=== PATIENT | female | born 1995 | race Native Hawaiian/Other Pacific Islander ===

== ENCOUNTER 2024-06-13 07:56 | Inpatient (IN) | payer OTHER ==
--- NOTE | 2024-06-13 08:06 | ED ---
General Adult HPI - General Stated complaint: Mental Health Eval Time Seen by Provider: 06/13/24 08:02 Source: patient, police, EMS, RN notes reviewed Mode of arrival: EMS Limitations: no limitations - History of Present Illness Initial comments: 29-year-old female presents emergency department via EMS for complaint of depression, she was ideation. Patient was brought in after her boyfriend called as patient made suicidal ideations. Patient states she is cut her finger with a razor blade she is unsure when her last tetanus was. Patient states she has been hospitalized in the past for similar reasons. Denies any current medications he does admit to alcohol use last night, marijuana use. - Related Data Allergies Allergy/AdvReac Type Severity Reaction Status Date / Time No Known Allergies Allergy Verified 06/13/24 08:12 Review of Systems ROS Statement: Those systems with pertinent positive or pertinent negative responses have been documented in the HPI. ROS Other: All systems not noted in ROS Statement are negative. General Exam Limitations: no limitations General appearance: alert, in no apparent distress Head exam: Present: atraumatic, normocephalic, normal inspection Eye exam: Present: normal appearance, PERRL, EOMI. Absent: scleral icterus, conjunctival injection, periorbital swelling ENT exam: Present: normal exam, mucous membranes moist Neck exam: Present: normal inspection, full ROM. Absent: tenderness, meningismus, lymphadenopathy Respiratory exam: Present: normal lung sounds bilaterally. Absent: respiratory distress, wheezes, rales, rhonchi, stridor Cardiovascular Exam: Present: regular rate, normal rhythm, normal heart sounds. Absent: systolic murmur, diastolic murmur, rubs, gallop, clicks Neurological exam: Present: alert, oriented X3, CN II-XII intact Skin exam: Present: warm, dry, intact, normal color. Absent: rash Course Vital Signs 06/13/24 07:59 Temperature 98.8 F Pulse Rate 73 Respiratory 18 Rate Blood Pressure 121/75 O2 Sat by Pulse 98 Oximetry Medical Decision Making - Medical Decision Making Was pt. sent in by a medical professional or institution (, PA, P[facility], urgent care, hospital, or fpc...) When possible be specific @ -No Did you speak to anyone other than the patient for history (EMS, parent, family, police, friend...)? What history was obtained from this source @ -No Did you review nursing and triage notes (agree or disagree)? Why? @ -I reviewed and agree with nursing and triage notes Were old charts reviewed (outside hosp., previous admission, EMS record, old EKG, old radiological studies, urgent care reports/EKG's, fpc records)? Report findings @ -No old charts were reviewed Differential Diagnosis (chest pain, altered mental status, abdominal pain women, abdominal pain men, vaginal bleeding, weakness, fever, dyspnea, syncope, headache, dizziness, GI bleed, back pain, seizure, CVA, palpatations, mental health, musculoskeletal)? @ -Differential Mental Health Depression, anxiety, bipolar, psychosis, schizophrenia, borderline personality, situational depression, adjustment disorder, behavioral disorder, brain tumor, malingering, substance abuse, encephalopathy, medication reaction, dementia, hypothyroidism, degenerative neurologic disorder, lupus.... This is not meant to be all-inclusive list EKG interpreted by me (3pts min.). @ -None X-rays interpreted by me (1pt min.). @ -None done CT interpreted by me (1pt min.). @ -None done U/S interpreted by me (1pt. min.). @ -None done What testing was considered but not performed or refused? (CT, X-rays, U/S, labs)? Why? @ -None What meds were considered but not given or refused? Why? @ -None Did you discuss the management of the patient with other professionals (professionals i.e. , PA, P[facility], lab, RT, psych nurse, social media analyst, materials management supervisor, teacher, space operations officer, correctional case records supervisor)? Give summary @ -[EPS evaluated the patient recommended inpatient treatment Was smoking cessation discussed for >3mins.? @ -No Was critical care preformed (if so, how long)? @ -No Were there social determinants of health that impacted care today? How? (Homelessness, low income, unemployed, alcoholism, drug addiction, transportation, low edu. Level, literacy, decrease access to med. care, half-way, rehab)? @ -No Was there de-escalation of care discussed even if they declined (Discuss DNR or withdrawal of care, Hospice)? DNR status @ -No What co-morbidities impacted this encounter? (DM, HTN, Smoking, COPD, CAD, Cancer, CVA, ARF, Chemo, Hep., AIDS, mental health diagnosis, sleep apnea, morbid obesity)? @ -None Was patient admitted / discharged? Hospital course, mention meds given and route, prescriptions, significant lab abnormalities, going to OR and other pertinent info. @ -Admitted to [facility] Undiagnosed new problem with uncertain prognosis? @ -No Drug Therapy requiring intensive monitoring for toxicity (Heparin, Nitro, Insuli n, Cardizem)? @ -No Were any procedures done? @ -No Diagnosis/symptom? @ -Depression, suicidal ideation Acute, or Chronic, or Acute on Chronic? @ -Acute Uncomplicated (without systemic symptoms) or Complicated (systemic symptoms)? @ -Uncomplicated Side effects of treatment? @ -No Exacerbation, Progression, or Severe Exacerbation? @ -No Poses a threat to life or bodily function? How? (Chest pain, [place], [place], pneumonia, PE, COPD, DKA, ARF, appy, cholecystitis, CVA, Diverticulitis, Homicidal, Suicidal, threat to staff... and all critical care pts) @ -Yes suicidal - Lab Data Lab Results 06/13/24 Range/Units 08:24 Urine Opiates Screen Not Detected (NotDetected) Ur Oxycodone Screen Not Detected (NotDetected) Urine Methadone Screen Not Detected (NotDetected) Ur Barbiturates Screen Not Detected (NotDetected) U Tricyclic Antidepress Not Detected (NotDetected) Ur Phencyclidine Scrn Not Detected (NotDetected) Ur Amphetamines Screen Not Detected (NotDetected) U Methamphetamines Scrn Not Detected (NotDetected) U Benzodiazepines Scrn Not Detected (NotDetected) Urine Cocaine Screen Not Detected (NotDetected) U Marijuana (THC) Screen Detected H (NotDetected) Disposition Clinical Impression: Depression, Suicidal ideation Disposition: TRANSFER TO PSYCH HOSP/UNIT Referrals: None,Stated [Primary Care Provider] - 1-2 days Time of Disposition: 10:38
[2024-06-13] MEDS: DIPH,PERTUS(ACELL)TETVAC-LF 0.5 ML VIAL IM ONE (08:41)
[2024-06-13 08:54] LABS: Amphetamine Screen,Urine Not Detected (NotDetected); Barbiturate Screen,Urine Not Detected (NotDetected); Benzodiazepines Screen,Urine Not Detected (NotDetected); Cocaine Screen,Urine Not Detected (NotDetected); Methadone Screen, Urine Not Detected (NotDetected); Opiate Screen,Urine Not Detected (NotDetected); Oxycodone Screen, Urine Not Detected (NotDetected); Phencyclidine Screen,Urine Not Detected (NotDetected); Tricyclic Antidepressant,Urine Not Detected (NotDetected); Urn Cannabinoid Scrn Detected (NotDetected)
[2024-06-13] MEDS ORDERED: traZODone HCL 50 MG TAB PO PRN (16:00)
[2024-06-13] MEDS ORDERED: ACETAMINOPHEN TAB 325 MG TAB PO PRN (16:00)
[2024-06-13] MEDS ORDERED: MAGNESIUM HYDROXIDE 2,400 MG/30 ML CUP PO PRN (16:00)
[2024-06-13] MEDS ORDERED: LORazepam 1 MG TAB PO PRN (16:00)
[2024-06-13] MEDS ORDERED: LORazepam 2 MG/ML INJ IM PRN (16:00)
[2024-06-13] MEDS ORDERED: IBUPROFEN 600 MG TAB PO PRN (16:00)
[2024-06-13] MEDS ORDERED: MAG HYDROX/AL HYDROX/SIMETH 355 ML BOTTLE PO PRN (16:00)
[2024-06-13 17:45] LABS: Appearance,Urine Clear (Clear); Bilirubin,Urine Negative (Negative); Blood,Urine Negative (Negative); Color,Urine Colorless; Glucose,Urine (UA) Negative (Negative); Ketones,Urine Negative (Negative); Leukocyte Esterase,Urine Negative (Negative); Nitrite,Urine Negative (Negative); Protein,Urine Negative (Negative); Urobilinogen,Urine <2.0 mg/dL (<2.0)
--- NOTE | 2024-06-13 20:11 | P.MDCNMH ---
<Charanjit Ferguson - Last Filed: 06/13/24 20:11> History of Present Illness H&P Date: 06/13/24 Chief Complaint: Medical evaluation Patient is a 29-year-old female with no significant history was brought to the ER by EMS for concerns regarding depression and suicidal ideation. Patient is seen today for medical evaluation. Patient reports no concerns. Patient denies headaches, dizziness, acute vision changes, fever, chills, shortness of breath, chest pain, abdominal pain, diarrhea, constipation, urinary complaints, numbness or weakness or tingling in upper and lower extremities. Patient denies any tremors. Patient states that she used to smoke half a pack per day for 3 years from [id number]. She resumed smoking 3 cigarettes/day since 1 month. She drinks 1 bottle of wine every 2 weeks. She uses marijuana 10 mg to 50 mg/day since 1 month; last use last night. Denies use of any other illicit drugs. UA is unremarkable Urine toxicology screening is positive for marijuana. Vitals: Tmax 98.8 F, heart rate 73, respiration rate 18, blood pressure 121/76, O2 saturation 98% on room air. Review of systems: Pertinent positives and negatives as discussed in HPI, a complete review of systems was performed and all other systems are negative. Social history: Tobacco: As in HPI Alcohol: As in HPI Recreational drugs: As in HPI Travel: None Occupation: None Family History: Noncontributory Physical examination: Vital signs reviewed General: non toxic, no distress, appears at stated age, obese Dermatology: 5 mm circular abrasion on the right index finger with no deep cuts with no abscess; the wound was bandaged Cardiovascular: S1S2 reg, no murmur, positive dorsalis pedis pulse bilateral, no edema Lungs: CTA bilateral, no rhonchi, no rales, no accessory muscle use Abdominal: soft, nontender to palpation, no guarding Ext: muscle strength 5 out of 5 in all 4 extremities grossly, no gross muscle atrophy, no contractures, Assessment/Plan: 29-year-old female with no significant history was brought to the ER by EMS for concerns regarding depression and suicidal ideation. Patient is seen today for medical evaluation. Patient reports no concerns. #Abrasion wound The right index finger is bandaged Continue with acetaminophen 650 mg p.o. every 4 hours as needed and ibuprofen 600 mg p.o. every 6 hours as needed for pain #Depression and suicidal ideation Management as per psychiatry Past Medical History Additional Past Medical History / Comment(s): gestational diabetes History of Any Multi-Drug Resistant Organisms: None Reported Past Anesthesia/Blood Transfusion Reactions: No Reported Reaction Past Psychological History: Anxiety, Bipolar, Depression Smoking Status: Current every day smoker Past Alcohol Use History: Occasional Additional Past Alcohol Use History / Comment(s): 5 drinks approx every 2 weeks Past Drug Use History: Marijuana Medications and Allergies Home Medications Medication Instructions Recorded Confirmed Type No Known Home Medications 06/13/24 06/13/24 History Allergies Allergy/AdvReac Type Severity Reaction Status Date / Time No Known Allergies Allergy Verified 06/13/24 17:13 Physical Exam Vitals: Vital Signs Temp Pulse Pulse Resp BP BP Pulse Ox 06/13/24 16:59 98.7 F 75 18 132/82 95 06/13/24 16:08 97.9 F 77 18 121/76 97 06/13/24 07:59 98.8 F 73 18 121/75 98 Intake and Output 06/13/24 06/13/24 06/13/24 06:59 14:59 22:59 Other: Weight 88.451 kg 84.368 kg Cranial Nerve Examination - Cranial Nerves Cranial Nerve II- Optic: Intact Cranial Nerve III- Oculomotor: Intact Cranial Nerve IV- Trochlear: Intact Cranial Nerve V- Trigeminal: Intact Cranial Nerve - Abducens: Intact Cranial Nerve VII- Facial: Intact Cranial Nerve VIII- Auditory: Intact Cranial Nerve IX- Glossopharyngeal: Intact Cranial Nerve X- Vagus: Intact Cranial Nerve XI- Accessory: Intact Cranial Nerve XII- Hypoglossal: Intact Results Labs: Abnormal Lab Results - Last 24 Hours (Table) 06/13/24 Range/Units 08:24 U Marijuana (THC) Screen Detected H (NotDetected) <Mervin Burden - Last Filed: 06/14/24 04:15> Physical Exam Vitals: Vital Signs Temp Pulse Pulse Resp BP BP Pulse Ox 06/13/24 16:59 98.7 F 75 18 132/82 95 06/13/24 16:08 97.9 F 77 18 121/76 97 06/13/24 07:59 98.8 F 73 18 121/75 98 Intake and Output 06/13/24 06/13/24 06/14/24 14:59 22:59 06:59 Other: Weight 88.451 kg 84.368 kg Cranial Nerve Examination - Cranial Nerves Cranial Nerve II- Optic: Intact Cranial Nerve III- Oculomotor: Intact Cranial Nerve IV- Trochlear: Intact Cranial Nerve V- Trigeminal: Intact Cranial Nerve - Abducens: Intact Cranial Nerve VII- Facial: Intact Cranial Nerve VIII- Auditory: Intact Cranial Nerve IX- Glossopharyngeal: Intact Cranial Nerve X- Vagus: Intact Cranial Nerve XI- Accessory: Intact Cranial Nerve XII- Hypoglossal: Intact Results Labs: Abnormal Lab Results - Last 24 Hours (Table) 06/13/24 Range/Units 08:24 U Marijuana (THC) Screen Detected H (NotDetected) Assessment and Plan Plan: I have seen and evaluated the patient today. I Discussed the case with the resident and agree with the resident's findings I edited the assessment and plan as necessary as documented in the resident's note.
[2024-06-14] MEDS: NICOTINE 14MG/24HR PATCH TRANSDERM SCH (09:00)
[2024-06-14 12:54] LABS: Basophils # (A) 0.1 k/uL (0-0.2); Basophils % (A) 1 %; Eosinophils # (A) 0.1 k/uL (0-0.7); Eosinophils % (A) 1 %; HCT 44.1 % (34.0-46.0); HGB 14.7 gm/dL (11.4-16.0); Lymphocytes # (A) 1.5 k/uL (1.0-4.8); Lymphocytes % (A) 22 %; MCH 32.3 pg (25.0-35.0); MCHC 33.4 g/dL (31.0-37.0); MCV 96.6 fL (80.0-100.0); Mean Platelet Volume 9.1; Monocytes # (A) 0.5 k/uL (0-1.0); Monocytes % (A) 8 %; Neutrophils # (A) 4.6 k/uL (1.3-7.7); Neutrophils % (A) 67 %; Platelet Count 266 k/uL (150-450); RBC 4.57 m/uL (3.80-5.40); RDW 13.1 % (11.5-15.5); WBC 6.9 k/uL (3.8-10.6)
[2024-06-14 13:12] LABS: ALT 33 U/L (4-34); AST 27 U/L (14-36); African American GFR (CKD) >90 (>60 ml/min/1.73 sqM); Albumin 4.7 g/dL (3.5-5.0); Alkaline Phosphatase 64 U/L (38-126); Anion Gap 11 mmol/L; Blood Urea Nitrogen 11 mg/dL (7-17); Calcium 9.4 mg/dL (8.4-10.2); Carbon Dioxide 22 mmol/L (22-30); Chloride 107 mmol/L (98-107); Glucose 81 mg/dL (74-99); Non-African American GFR(CKD) >90 (>60 ml/min/1.73 sqM); Potassium 4.2 mmol/L (3.5-5.1); Sodium 140 mmol/L (137-145); Total Bilirubin 0.8 mg/dL (0.2-1.3); Total Protein 7.5 g/dL (6.3-8.2)
[2024-06-14 18:48] LABS: Chol/HDL Ratio 4.82 Ratio; LDL Cholesterol,Calculated 109.5 mg/dL (0.0-131.0)
[2024-06-15] MEDS: NICOTINE GUM (POLACRILEX) 2 MG GUM BUCCAL PRN (08:39)
[2024-06-15] MEDS: buPROPion SR 100 MG TABLET.ER PO SCH (08:39)
--- NOTE | 2024-06-15 17:25 | P.HP ---
Psychiatric H&P - . H&P Date: 06/14/24 History & Physical: Allergies Allergy/AdvReac Type Severity Reaction Status Date / Time No Known Allergies Allergy Verified 06/13/24 17:13 Vital Signs Temp 97.5 F L 06/15/24 06:38 Pulse 62 06/15/24 06:38 Resp 16 06/15/24 06:38 BP 109/69 06/15/24 06:38 Pulse Ox 100 06/15/24 06:38 FiO2 Laboratory Last Values WBC 6.9 k/uL (3.8-10.6) 06/14/24 12:11 RBC 4.57 m/uL (3.80-5.40) 06/14/24 12:11 Hgb 14.7 gm/dL (11.4-16.0) 06/14/24 12:11 Hct 44.1 % (34.0-46.0) 06/14/24 12:11 MCV 96.6 fL (80.0-100.0) 06/14/24 12:11 MCH 32.3 pg (25.0-35.0) 06/14/24 12:11 MCHC 33.4 g/dL (31.0-37.0) 06/14/24 12:11 RDW 13.1 % (11.5-15.5) 06/14/24 12:11 Plt Count 266 k/uL (150-450) 06/14/24 12:11 MPV 9.1 06/14/24 12:11 Neutrophils % 67 % 06/14/24 12:11 Lymphocytes % 22 % 06/14/24 12:11 Monocytes % 8 % 06/14/24 12:11 Eosinophils % 1 % 06/14/24 12:11 Basophils % 1 % 06/14/24 12:11 Neutrophils # 4.6 k/uL (1.3-7.7) 06/14/24 12:11 Lymphocytes # 1.5 k/uL (1.0-4.8) 06/14/24 12:11 Monocytes # 0.5 k/uL (0-1.0) 06/14/24 12:11 Eosinophils # 0.1 k/uL (0-0.7) 06/14/24 12:11 Basophils # 0.1 k/uL (0-0.2) 06/14/24 12:11 Sodium 140 mmol/L (137-145) 06/14/24 12:11 Potassium 4.2 mmol/L (3.5-5.1) 06/14/24 12:11 Chloride 107 mmol/L (98-107) 06/14/24 12:11 Carbon Dioxide 22 mmol/L (22-30) 06/14/24 12:11 Anion Gap 11 mmol/L 06/14/24 12:11 BUN 11 mg/dL (7-17) 06/14/24 12:11 Creatinine 0.58 mg/dL (0.52-1.04) 06/14/24 12:11 Est GFR (CKD-EPI)AfAm >90 (>60 ml/min/1.73 sqM) 06/14/24 12:11 Est GFR (CKD-EPI)NonAf >90 (>60 ml/min/1.73 sqM) 06/14/24 12:11 Glucose 81 mg/dL (74-99) 06/14/24 12:[address] Glu mg/dL 117 mg/dL 06/14/24 12:11 Hemoglobin A1c 5.7 % (<=6.0) 06/14/24 12:11 Calcium 9.4 mg/dL (8.4-10.2) 06/14/24 12:11 Total Bilirubin 0.8 mg/dL (0.2-1.3) 06/14/24 12:11 AST 27 U/L (14-36) 06/14/24 12:11 ALT 33 U/L (4-34) 06/14/24 12:11 Alkaline Phosphatase 64 U/L (38-126) 06/14/24 12:11 Total Protein 7.5 g/dL (6.3-8.2) 06/14/24 12:11 Albumin 4.7 g/dL (3.5-5.0) 06/14/24 12:11 Triglycerides 126.00 mg/dL (0.00-149.00) 06/14/24 12:11 Cholesterol 170.00 mg/dL (0.00-200.00) 06/14/24 12:11 LDL Cholesterol, Calc 109.5 mg/dL (0.0-131.0) 06/14/24 12:11 VLDL Cholesterol, Calc 25.20 mg/dL (5.00-40.00) 06/14/24 12:11 HDL Cholesterol 35.30 mg/dL (40.00-60.00) L 06/14/24 12:11 Cholesterol/HDL Ratio 4.82 Ratio 06/14/24 12:11 TSH 2.650 mIU/L (0.465-4.680) 06/14/24 12:11 Urine Color Colorless 06/13/24 08:24 Urine Appearance Clear (Clear) 06/13/24 08:24 Urine pH 6.0 (5.0-8.0) 06/13/24 08:24 Ur Specific [place] 1.010 (1.001-1.035) 06/13/24 08:24 Urine Protein Negative (Negative) 06/13/24 08:24 Urine Glucose (UA) Negative (Negative) 06/13/24 08:24 Urine Ketones Negative (Negative) 06/13/24 08:24 Urine Blood Negative (Negative) 06/13/24 08:24 Urine Nitrite Negative (Negative) 06/13/24 08:24 Urine Bilirubin Negative (Negative) 06/13/24 08:24 Urine Urobilinogen <2.0 mg/dL (<2.0) 06/13/24 08:24 Ur Leukocyte Esterase Negative (Negative) 06/13/24 08:24 Urine HCG, Qual Not Detected (Not Detectd) 06/13/24 08:24 Urine Opiates Screen Not Detected (NotDetected) 06/13/24 08:24 Ur Oxycodone Screen Not Detected (NotDetected) 06/13/24 08:24 Urine Methadone Screen Not Detected (NotDetected) 06/13/24 08:24 Ur Barbiturates Screen Not Detected (NotDetected) 06/13/24 08:24 U Tricyclic Antidepress Not Detected (NotDetected) 06/13/24 08:24 Ur Phencyclidine Scrn Not Detected (NotDetected) 06/13/24 08:24 Ur Amphetamines Screen Not Detected (NotDetected) 06/13/24 08:24 U Methamphetamines Scrn Not Detected (NotDetected) 06/13/24 08:24 U Benzodiazepines Scrn Not Detected (NotDetected) 06/13/24 08:24 Urine Cocaine Screen Not Detected (NotDetected) 06/13/24 08:24 U Marijuana (THC) Screen Detected (NotDetected) H 06/13/24 08:24 SARS-CoV-2 (PCR) Not Detected (Not Detectd) 06/13/24 11:10 06/15/24 17:24 Psychiatric Evaluation Identifying Data: Ms. Griffith is 29 years old, female, [place], [place] in a house with her boyfriend. Chief Complaint: I was trying to hurt myself. History of Psychiatric Illness- The patient noted that she was trying to hurt herself in an intoxicated state because of feeling of insecurity. Her boyfriend was trying to prevent her. He called the police and she was brought to the ER. The patient moved to her boyfriend in February, after from her . The patient noted that she has been depressed on and off for last 12 months due to her separation. She did not get any treatment for depression in last 12 months. She reported s ymptoms of appetite fluctuation, sleep irregularity, loss of interest, social isolation, worthlessness, hopelessness, and suicidal thoughts by cutting herself. The patient noted that she was trying to cut herself before coming to the hospital. The patient was first diagnosed with depression and generalized anxiety disorder, at age 23, she was diagnosed with PTSD and BPD. The patient noted that she was treated as an out-pt off and on since age 21 till the age 24. She has had 4 psychiatric admissions between the ages [age]. Her last psychiatric admission was in 2021. She was admitted to the hospital for depression and suicidal threats. Her last visit to out patient clinic was at age 24. Past Psychiatric History: As stated above. Past Medication History: Wellbutrin. She does not know the names of the other medications prescribed. Leading questions: The patient admitted to Depression and Anxiety. Denied SI or HI. Denied symptoms consistent with psychosis Drugs and alcohol history: She use alcohol occasionally. She uses Marijuana regularly. She denied use of any other drugs. Tobacco use: 3 cigarettes a day. Past Medical history: None. Family History of Psychiatric Disorder: Social History and Family History: She was born and raised in [place], [place]. She grew-up with 4 siblings. She dropped out in 12 grade. Longest job for 1 year at [employer]. She was once for 7 years. She has one child 3 years old. OTC: None. Allergies: none as per patient. Objective: MSE: Alert and attentive. Orientation times three Dressed and Groomed: Appropriately. Pleasant and cooperative. Psychomotor Activity: Normal. Speech: Normal in tone, quality, and quantity. Mood: Depressed and anxious. Affect: Consistent with mood. SI or HI: None. Perceptual disturbance: None. Thought Content: No paranoia or other delusional thinking noted. Thought Process: Normal. Cognition: Intact Judgment and Insight: Fair. AIMS: Normal Labs: Available labs reviewed. Diagnosis: major depressive disorder severe, recurrent. Plan and Recommendations: Continue current Medications. Wellbutrin SR 100 mg po daily. Monitor MS and side effects of medications and adjust medications accordingly. Provide supportive psychotherapy and psychoeducation. The patient provided psychoeducation. The patient provided with substance abuse counselling and advised to attend AA/NA Smoke cessation therapy. The patient to attend [facility]. Medication Consent with explanation of risk/benefits and side effects: Explained and obtained.
--- NOTE | 2024-06-15 17:33 | P.PN ---
Progress Note - Text Progress Note Date: 06/15/24 Follow-up Mediation Review Chief Complaint: I feeling better. Subjective: The patient noted that she feels better with Wellbutrin. Her mood has improved. She did complain of being tired after taking Wellbutrin No other side effects reported. Discussed with patient regarding the dose at 100 mg. and increased after she becomes tolerant to this side effect. No other side effects reported. The patient has been attending the groups. The participation is good. The interaction with staff and peers is good. The patient is compliant with treatment recommendations. Leading questions: The patient admitted to Depression and Anxiety. Denied SI or HI. Denied symptoms consistent with psychosis Sleep and Appetite: Fair. Change in family/ living/job/financial/daily routine: No change. Change in medical condition: No change. Change in medications: No change. Side effects from Medications: None. Allergies: No change. Objective- MSE: Alert and attentive. Orientation times three. Dressed and Groomed: Appropriately. Pleasant and cooperative. Psychomotor Activity: Normal. Speech: Normal in tone, quality, and quantity. Mood: I am slightly better. Affect: Consistent with mood. SI or HI: None. Perceptual disturbance: None. Thought Content: No paranoia or other delusional thinking noted. Thought Process: Normal. Cognition: Intact Judgment and Insight: Fair. AIMS: Normal. Labs: No new labs. Diagnosis: No change. Plan and Recommendations: Continue current Medications. Monitor MS and side effects of medications and adjust medications accordingly. Provide supportive psychotherapy. The patient provided psychoeducation and advised The patient provided Substance abuse counseling. Smoke cessation therapy. The patient to attend nguyen activities. CBC with Diff, CMP, TSH, Lipid Profile, HbA1c. Medication Consent with explanation of risk/benefits and side effects: Explained and obtained.
[2024-06-16 07:11] VITALS: TEMP 97.7
--- NOTE | 2024-06-16 13:54 | P.PN ---
Progress Note - Text Progress Note Date: 06/16/24 Follow-up Mediation Review Chief Complaint: I am improving. Subjective: The patient noted that she continues to feel better. Her tiredness has improved. She reported no other side effects. She did not want to increase medications any further. She wants medication to be titrated as an out-pt. No other side effects reported. She has been compliant with medications. The patient has been attending the groups. The participation is good. The interaction with staff and peers is good. The patient is compliant with treatment recommendations. Leading questions: The patient admitted to Depression and Anxiety. Denied SI or HI. Denied symptoms consistent with psychosis Sleep and Appetite: Fair. Change in family/ living/job/financial/daily routine: No change. Change in medical condition: No change. Change in medications: No change. Side effects from Medications: None. Allergies: No change. Objective- MSE: Alert and attentive. Orientation times three. Dressed and Groomed: Appropriately. Pleasant and cooperative. Psychomotor Activity: Normal. Speech: Normal in tone, quality, and quantity. Mood: Mild depression and anxiety. Affect: Consistent with mood. SI or HI: None. Perceptual disturbance: None. Thought Content: No paranoia or other delusional thinking noted. Thought Process: Normal. Cognition: Intact Judgment and Insight: Fair. AIMS: Normal. Labs: No new labs. Diagnosis: No change. Plan and Recommendations: Continue current Medications. Monitor MS and side effects of medications and adjust medications accordingly. Provide supportive psychotherapy. The patient provided psychoeducation and advised The patient provided Substance abuse counseling. Smoke cessation therapy. The patient to attend nguyen activities. Medication Consent with explanation of risk/benefits and side effects: Explained and obtained.
[2024-06-17 06:16] VITALS: BP 116/73; PULSE 60; RESP 19
--- NOTE | 2024-06-17 15:44 | P.DS ---
Providers Date of admission: 06/13/24 15:10 Expected date of discharge: 06/17/24 Attending physician: Soy Tipton MD Consults: 06/13/24 16:00 Consult Physician Routine Consulting Provider: Endy Sharif Consult Reason/Comments: H&P and medical Do you want consulting provider notified?: Yes Primary care physician: Stated None - Discharge Diagnosis(es) (1) Major depressive disorder, recurrent severe without psychotic features Status: Acute Priority: High Hospital Course: Discharge Summary HPI: Identifying Data: Ms. Griffith is 29 years old, female, [place], [place] in a house with her boyfriend. Chief Complaint: I was trying to hurt myself. History of Psychiatric Illness- The patient noted that she was trying to hurt herself in an intoxicated state because of feeling of insecurity. Her boyfriend was trying to prevent her. He called the police and she was brought to the ER. The patient moved to her boyfriend in February, after from her . The patient noted that she has been depressed on and off for last 12 months due to her separation. She did not get any treatment for depression in last 12 months. She reported symptoms of appetite fluctuation, sleep irregularity, loss of interest, social isolation, worthlessness, hopelessness, and suicidal thoughts by cutting herself. The patient noted that she was trying to cut herself before coming to the hospital. The patient was first diagnosed with depression and generalized anxiety disorder, at age 23, she was diagnosed with PTSD and BPD. The patient noted that she was treated as an out-pt off and on since age 21 till the age 24. She has had 4 psychiatric admissions between the ages [age]. Her last psychiatric admission was in 2021. She was admitted to the hospital for depression and suicidal threats. Her last visit to out-patient clinic was at age 24. Past Psychiatric History: As stated above. Past Medication History: Wellbutrin. She does not know the names of the other medications prescribed. Hospital Course: After admission, the patient was involved in pharmacotherapy, nguyen milieu, and individual psychodynamic psychotherapy. The patient was started Wellbutrin. The dose was titrated to obtain the desire effects. The patient tolerated medicat ions well without any side effects. The patient was also involved in nguyen activities. The patient attended the groups and participated well. The patient interacted with peers and staff well. The patient slowly started showing improvement. The hospital course was uneventful. The patient symptoms of depression, suicidal and homicidal ideations abated. The psychosis improved. The patient was stable to be discharged to out-patient care. The patient did not have any guns or weapons in possession at home. MSE: Alert and attentive. Orientation times three Dressed and Groomed: Appropriately. Pleasant and cooperative. Psychomotor Activity: Normal. Speech: Normal in tone, quality, and quantity. Mood: Depressed and anxious. Affect: Consistent with mood. SI or HI: None. Perceptual disturbance: None. Thought Content: No paranoia or other delusional thinking noted. Thought Process: Normal. Cognition: Intact Judgment and Insight: Fair. AIMS: Normal Labs: Available labs reviewed. Diagnosis: major depressive disorder severe, recurrent. Plan: The patient to be discharged today. The patient has attained good improvement since admission. He is stable to be followed as an outpatient. The patient is not suicidal or Homicidal. He does not pose any harm to self or others. The patient remains at a greater risk of self-harm or harm to others than general population on a chronic basis due to psychiatric illness and substance abuse. The patient will continue taking following medication post discharge. The importance of medication compliance and maintaining regular appointments at psychiatric out-pt and PCP clinic was explained and encouraged. The patient was also advised to seek alcohol counseling and attend AA/NA meetings. The understood and agreed with the recommendations. home economics extension worker to arrange for and conduct family meeting to ensure safety upon discharge and answer any questions. The social worker delinquency prevention to arrange for patients follow-up appointments at [facility] for psychiatric care along with follow-up with PCP. The patient provided psychoeducation. Advised to call 911 or go to nearest ED or call this hospital in case of acute worsening of symptomatology, severe side effects or having suicidal, homicidal thoughts and feeling unsafe at home. Patient Condition at Discharge: Stable Plan - Discharge Summary Discharge Rx Participant: No New Discharge Prescriptions: New buPROPion SR [Wellbutrin SR] 100 mg PO DAILY 15 Days #15 tab Discharge Medication List buPROPion SR [Wellbutrin SR] 100 mg PO DAILY 15 Days #15 tab 06/17/24 [Rx] Follow up Appointment(s)/Referral(s): [facility] [Outside] - 06/21/24 1:00 pm (06/21 at 1pm with Melissa ) [facility] [NON-STAFF] - 1 Week Patient Instructions/Handouts: How to Stop Smoking (DC), Depression (DC) Activity/Diet/Wound Care/Special Instructions: Avoid the use of street drugs and alcohol. Take all medications as prescribed. When you are in need of refills on your medications, please contact your outpatient medical provider and/or outpatient psychiatrist. Please go to your scheduled outpatient appointments for aftercare treatment. If symptoms return or become worse, call the crisis line at or and/or visit the nearest emergency room for assistance. National Suicide and Crisis Lifeline - call or text 724. Discharge Disposition: HOME SELF-CARE
== END 2024-06-17 15:30 | disposition home or self-care (01) | DRG 885 ==
LOC: EC 07:56 → 3MHU 15:10
PROVIDERS: ADMIT Psychiatry & Neurology Psychiatry; ATTEND Psychiatry & Neurology Psychiatry
DX: F33.2 Major depressive disorder, recurrent severe without psychotic features (principal); R45.851 Suicidal ideations; Z28.310 Unvaccinated for COVID-19; F43.10 Post-traumatic stress disorder, unspecified; F60.3 Borderline personality disorder; S61.219A Laceration without foreign body of unspecified finger without damage to nail, initial encounter; Z79.899 Other long term (current) drug therapy; Z86.32 Personal history of gestational diabetes; F17.210 Nicotine dependence, cigarettes, uncomplicated; Z63.5 Disruption of family by separation and divorce; F41.1 Generalized anxiety disorder; Z11.52 Encounter for screening for COVID-19
CPT/HCPCS: 80053; 80061; 80306; 81003; 81025; 82075; 83036; 84443; 85025; 87635; 90471; 90715; 99285

== ENCOUNTER 2024-07-23 15:54 | Emergency (ER) | payer OTHER ==
[2024-07-23 17:14] LABS: Basophils # (A) 0.1 k/uL (0-0.2); Basophils % (A) 1 %; Eosinophils # (A) 0.1 k/uL (0-0.7); Eosinophils % (A) 1 %; HCT 43.4 % (34.0-46.0); HGB 14.4 gm/dL (11.4-16.0); Lymphocytes # (A) 1.5 k/uL (1.0-4.8); Lymphocytes % (A) 13 %; MCH 31.9 pg (25.0-35.0); MCHC 33.2 g/dL (31.0-37.0); MCV 96.2 fL (80.0-100.0); Mean Platelet Volume 9.3; Monocytes # (A) 0.5 k/uL (0-1.0); Monocytes % (A) 4 %; Neutrophils # (A) 9.5 k/uL (1.3-7.7); Neutrophils % (A) 81 %; Platelet Count 266 k/uL (150-450); RBC 4.51 m/uL (3.80-5.40); RDW 13.2 % (11.5-15.5); WBC 11.7 k/uL (3.8-10.6)
--- NOTE | 2024-07-23 17:24 | ED ---
General Adult HPI - General Chief complaint: Fall Stated complaint: fall, seizure Time Seen by Provider: 07/23/24 16:13 Source: patient Mode of arrival: ambulatory Limitations: no limitations - History of Present Illness Initial comments: Dictation was produced using [employer] dictation software. please excuse any grammatical, word or spelling errors. Chief Complaint: 29-year-old female presents emergency department with seizure History of Present Illness: Patient 29-year-old female she allegedly has a past medical history of seizure disorder. She has not sought any medical treatment regarding this. She recently moved here from [place] to be with her significant other who she met online. P significant other states that patient has a history of multiple personalities. She went downstairs to the basement when she was found on the ground. Suspect that patient had a seizure. Patient otherwise feels well at the bedside. She has no bedside symptoms currently The ROS documented in this emergency department record has been reviewed and confirmed by me. Those systems with pertinent positive or negative responses have been documented in the HPI. All other systems are other negative and/or noncontributory. - Related Data Previous Rx's Medication Instructions Recorded buPROPion SR [Wellbutrin SR] 100 mg PO DAILY 15 Days #15 tab 06/17/24 Allergies Allergy/AdvReac Type Severity Reaction Status Date / Time No Known Allergies Allergy Verified 07/23/24 16:08 Review of Systems ROS Statement: Those systems with pertinent positive or pertinent negative responses have been documented in the HPI. ROS Other: All systems not noted in ROS Statement are negative. Past Medical History Additional Past Medical History / Comment(s): gestational diabetes, multiple personality disorder History of Any Multi-Drug Resistant Organisms: None Reported Past Surgical History: No Surgical Hx Reported Past Anesthesia/Blood Transfusion Reactions: No Reported Reaction Past Psychological History: Anxiety, Bipolar, Depression Smoking Status: Current every day smoker Past Alcohol Use History: Occasional Past Drug Use History: Marijuana General Exam - General Exam Comments Initial Comments: PHYSICAL EXAM: General Impression: Alert and oriented x3, not in acute distress HEENT: Normocephalic atraumatic, extra-ocular movements intact, pupils equal and reactive to light bilaterally, mucous membranes moist. Cardiovascular: Heart regular rate and rhythm Chest: Able to complete full sentences, no retractions, no tachypnea Abdomen: abdomen soft, non-tender, non-distended, no organomegaly Musculoskeletal: Pulses present and equal in all extremities, no peripheral edema Motor: no focal deficits noted Neurological: CN II-XII grossly intact, no focal motor or sensory deficits noted Skin: Intact with no visualized rashes Psych: Normal affect and mood Limitations: no limitations Course Vital Signs 07/23/24 07/23/24 07/23/24 16:05 16:53 19:21 Temperature 98.4 F 98.0 F Pulse Rate 89 94 87 Respiratory 17 18 18 Rate Blood Pressure 142/88 146/95 139/88 O2 Sat by Pulse 97 99 98 Oximetry EKG Findings - EKG Comments: EKG Findings:: My EKG interpretation: Ventricular rate 81, sinus rhythm,. 164, cures 90, QTc 3 9. No SD prolongation, no QTC prolongation, no ST or T-wave changes noted. Overall, this EKG is unremarkable Medical Decision Making - Medical Decision Making Was pt. sent in by a medical professional or institution (, PA, BUCK SWAMPER, urgent care, hospital, or custodial...) When possible be specific @ -No Did you speak to anyone other than the patient for history (EMS, parent, family, police, friend...)? What history was obtained from this source @ -No Did you review nursing and triage notes (agree or disagree)? Why? @ -I reviewed and agree with nursing and triage notes Were old charts reviewed (outside hosp., previous admission, EMS record, old EKG, old radiological studies, urgent care reports/EKG's, custodial records)? Report findings @ -No old charts were reviewed Differential Diagnosis (chest pain, altered mental status, abdominal pain women, abdominal pain men, vaginal bleeding, musculoskeletal, weakness, fever, dyspnea, syncope, headache, dizziness, GI bleed, back pain, seizure, CVA, palpatations, mental health)? @ -Differential Seizure: Recurrent seizure disorder, febrile seizure, alcohol withdrawal, stimulants, meningitis, encephalitis, intercranial hemorrhage, intracranial tumor, stroke, eclampsia, thyrotoxicosis, hypocalcemia, hyponatremia, hypernatremia, hypomagnesemia, psychogenic, this is not meant to be an all-inclusive list. EKG interpreted by me (3pts min.). @ -None done X-rays interpreted by me (1pt min.). @ -None done CT interpreted by me (1pt min.). @ -CT scan the brain shows no acute processes U/S interpreted by me (1pt. min.). @ -None done What testing was considered but not performed or refused? (CT, X-rays, U/S, labs)? Why? @ -None What meds were considered but not given or refused? Why? @ -None Was smoking cessation discussed for >3mins.? @ -No Were there social determinants of health that impacted care today? How? (Homelessness, low income, unemployed, alcoholism, drug addiction, transportati on, low edu. Level, literacy, decrease access to med. care, correction, rehab)? @ -No Was there de-escalation of care discussed even if they declined (Discuss DNR or withdrawal of care, Hospice)? DNR status @ -No What co-morbidities impacted this encounter? (DM, HTN, Smoking, COPD, CAD, Cancer, CVA, ARF, Chemo, Hep., AIDS, mental health diagnosis, sleep apnea, morbid obesity)? @ -None Was patient admitted / discharged? Hospital course, mention meds given and route, prescriptions, significant lab abnormalities, going to OR and other pertinent info. @ -29-year-old female presents the emergency department for alleged seizure. Vital signs upon arrival are within acceptable limits. Laboratory evaluation obtained showing no acute processes. CT brain shows no acute processes. Patient reevaluated bedside at 8:40 PM found to be in stable condition. Patient be discharged advised follow-up with primary care doctor. Did you discuss the management of the patient with other professionals (ken dotson i.eMartha Jeronimo, PA, BUCK SWAMPER, lab, RT, psych nurse, addiction social worker, shear operator, teacher, driver license reviewing officer, heel caser)? Give summary @ -No Was critical care preformed (if so, how long)? @ -No Undiagnosed new problem with uncertain prognosis? @ -No Drug Therapy requiring intensive monitoring for toxicity (Heparin, Nitro, Insulin, Cardizem)? @ -No Were any procedures done? @ -No Diagnosis/symptom? Acute, or Chronic, or Acute on Chronic? Uncomplicated (without systemic symptoms) or Complicated (systemic symptoms)? @ -Seizure Side effects of treatment? @ -No Exacerbation, Progression, or Severe Exacerbation? @ -No Poses a threat to life or bodily function? How? (Chest pain, [place], [place], pneumonia, PE, COPD, DKA, ARF, appy, cholecystitis, CVA, Diverticulitis, Homicidal, Suicidal, threat to staff... and all critical care pts) @ -yes - Lab Data Result diagrams: 07/23/24 16:52 07/23/24 16:52 Lab Results 07/23/24 07/23/24 07/23/24 Range/Units 16:52 16:52 16:52 WBC 11.7 H (3.8-10.6) k/uL RBC 4.51 (3.80-5.40) m/uL Hgb 14.4 (11.4-16.0) gm/dL Hct 43.4 (34.0-46.0) % MCV 96.2 (80.0-100.0) fL MCH 31.9 (25.0-35.0) pg MCHC 33.2 (31.0-37.0) g/dL RDW 13.2 (11.5-15.5) % Plt Count 266 (150-450) k/uL MPV 9.3 Neutrophils % 81 % Lymphocytes % 13 % Monocytes % 4 % Eosinophils % 1 % Basophils % 1 % Neutrophils # 9.5 H (1.3-7.7) k/uL Lymphocytes # 1.5 (1.0-4.8) k/uL Monocytes # 0.5 (0-1.0) k/uL Eosinophils # 0.1 (0-0.7) k/uL Basophils # 0.1 (0-0.2) k/uL Sodium 139 (137-145) mmol/L Potassium 3.9 (3.5-5.1) mmol/L Chloride 107 (98-107) mmol/L Carbon Dioxide 25 (22-30) mmol/L Anion Gap 7 mmol/L BUN 10 (7-17) mg/dL Creatinine 0.65 (0.52-1.04) mg/dL Est GFR (CKD-EPI)AfAm >90 (>60 ml/min/1.73 sqM) Est GFR (CKD-EPI)NonAf >90 (>60 ml/min/1.73 sqM) Glucose 107 H (74-99) mg/dL Calcium 9.2 (8.4-10.2) mg/dL Magnesium 1.8 (1.6-2.3) mg/dL Total Bilirubin 0.7 (0.2-1.3) mg/dL AST 19 (14-36) U/L ALT 23 (4-34) U/L Alkaline Phosphatase 68 (38-126) U/L Total Protein 7.0 (6.3-8.2) g/dL Albumin 4.3 (3.5-5.0) g/dL Urine HCG, Qual Not Detected (Not Detectd) Disposition Clinical Impression: Seizure Disposition: HOME SELF-CARE Condition: Good Instructions (If sedation given, give patient instructions): Recurrent Seizures in Adults (ED) Is patient prescribed a controlled substance at d/c from ED?: No Referrals: None,Stated [Primary Care Provider] - 1-2 days Time of Disposition: 20:40
[2024-07-23 17:35] LABS: ALT 23 U/L (4-34); AST 19 U/L (14-36); African American GFR (CKD) >90 (>60 ml/min/1.73 sqM); Albumin 4.3 g/dL (3.5-5.0); Alkaline Phosphatase 68 U/L (38-126); Anion Gap 7 mmol/L; Blood Urea Nitrogen 10 mg/dL (7-17); Calcium 9.2 mg/dL (8.4-10.2); Carbon Dioxide 25 mmol/L (22-30); Chloride 107 mmol/L (98-107); Glucose 107 mg/dL (74-99); Magnesium 1.8 mg/dL (1.6-2.3); Non-African American GFR(CKD) >90 (>60 ml/min/1.73 sqM); Potassium 3.9 mmol/L (3.5-5.1); Sodium 139 mmol/L (137-145); Total Bilirubin 0.7 mg/dL (0.2-1.3)
--- NOTE | 2024-07-23 20:48 | CT ---
EXAMINATION TYPE: CT brain wo con CT DLP: 1134.8 mGycm, Automated exposure control for dose reduction was used. DATE OF EXAM: 07/23/2024 8:24 PM COMPARISON: None. CLINICAL INDICATION: Female, 29 years old with history of seizure, Seizure TECHNIQUE: Brain: Axial CT images of the brain were obtained with coronal and sagittal reformats created and rev iewed. Contrast used: None. Oral contrast used: None. FINDINGS: Brain: Extra-axial spaces: No abnormal extra-axial fluid collections. Ventricular system: Within normal limits Cerebral parenchyma: No acute intraparenchymal hemorrhage or mass effect. The freedman-white junction is well differentiated. Cerebellum: Unremarkable. Mass effect: No evidence of midline shift. Intracranial vasculature: unremarkable Soft tissues: Normal. Calvarium/osseous structures: No depressed skull fracture. Paranasal sinuses and mastoid air cells: Mild scattered paranasal sinus disease. Visualized orbits: Orbital contents are intact. IMPRESSION: No acute intracranial process.
[2024-07-23 22:11] VITALS: BP 133/73; PULSE 73; RESP 14; TEMP 98.3
== END 2024-07-23 21:54 | disposition home or self-care (01) ==
LOC: EC 15:54
CPT/HCPCS: 36415; 70450; 80053; 81025; 83735; 85025; 93005; 99284

== ENCOUNTER 2024-08-16 06:05 | Emergency (ER) | payer OTHER, MEDICAID ==
--- NOTE | 2024-08-16 07:07 | ED ---
Dizziness HPI - General Chief Complaint: Dizziness Stated Complaint: dizzy headache NVD Time Seen by Provider: 08/16/24 07:06 Source: patient, RN notes reviewed Mode of arrival: wheelchair Limitations: no limitations - History of Present Illness Initial Comments: 29-year-old female presented to the ER with a chief complaint of dizziness and nausea. She states this started around 10 PM and describes it as room spinning. She was extremely nauseous. She denies any episodes of vomiting but strong smells make her feel like she is going to vomit. She denies any chest pain, shortness of breath, palpitations or abdominal pain. No urinary complaints, c onstipation/diarrhea or peripheral edema. Patient denies a history of vertigo. She has not taken anything for symptoms at this time. No fevers or chills. - Related Data Previous Rx's Medication Instructions Recorded buPROPion SR [Wellbutrin SR] 100 mg PO DAILY 15 Days #15 tab 06/17/24 Meclizine [Antivert] 25 mg PO BID #15 tab 08/16/24 Allergies Allergy/AdvReac Type Severity Reaction Status Date / Time No Known Allergies Allergy Verified 08/16/24 06:15 Review of Systems ROS Statement: Those systems with pertinent positive or pertinent negative responses have been documented in the HPI. ROS Other: All systems not noted in ROS Statement are negative. Past Medical History Additional Past Medical History / Comment(s): gestational diabetes, multiple personality disorder History of Any Multi-Drug Resistant Organisms: None Reported Past Surgical History: No Surgical Hx Reported Past Anesthesia/Blood Transfusion Reactions: No Reported Reaction Past Psychological History: Anxiety, Bipolar, Depression Smoking Status: Current every day smoker Past Alcohol Use History: Occasional Past Drug Use History: Marijuana General Exam - General Exam Comments Initial Comments: Visual Physical Exam Vital signs reviewed General: Well-appearing, nontoxic, no acute distress. Head: Normocephalic, atraumatic Eyes: PERRLA, EOMI ENT: Airway patent Chest: Nonlabored breathing Skin: No visual rash, normal skin tone Neuro: Alert and oriented 3 Musculoskeletal: No gross abnormalities Limitations: no limitations General appearance: alert, in no apparent distress Head exam: Present: atraumatic, normocephalic, normal inspection ENT exam: Present: normal exam, normal oropharynx, mucous membranes moist, TM's normal bilaterally Respiratory exam: Present: normal lung sounds bilaterally. Absent: respiratory distress, wheezes, rales, rhonchi, stridor Cardiovascular Exam: Present: regular rate, normal rhythm, normal heart sounds. Absent: systolic murmur, diastolic murmur, rubs, gallop, clicks GI/Abdominal exam: Present: soft, normal bowel sounds. Absent: distended, tenderness, guarding, rebound, rigid Neurological exam: Present: alert, oriented X3, CN II-XII intact Skin exam: Present: warm, dry, intact, normal color. Absent: rash Course Vital Signs 08/16/24 08/16/24 08/16/24 06:10 08:18 10:05 Temperature 98.1 F 97.9 F Pulse Rate 83 85 74 Respiratory 18 16 16 Rate Blood Pressure 103/72 118/65 118/57 O2 Sat by Pulse 97 97 99 Oximetry - Reevaluation(s) Reevaluation #1: 08/16/24 09:01 Patient reevaluated. No signs of acute distress. Patient reporting mild assessment of dizziness. Medical Decision Making - Medical Decision Making I performed the quick note portion of this chart. Electronically signed by Aretha Antunez PA-C Was pt. sent in by a medical professional or institution ([facility], [employer], urgent care, hospital, or fpc...) When possible be specific @ -No Did you speak to anyone other than the patient for history (EMS, parent, family, police, friend...)? What history was obtained from this source @ -No Did you review nursing and triage notes (agree or disagree)? Why? @ -I reviewed and agree with nursing and triage notes Were old charts reviewed (outside hosp., previous admission, EMS record, old EKG, old radiological studies, urgent care reports/EKG's, fpc records)? Report findings @ -No old charts were reviewed Differential Diagnosis (chest pain, altered mental status, abdominal pain women, abdominal pain men, vaginal bleeding, weakness, fever, dyspnea, syncope, headache, dizziness, GI bleed, back pain, seizure, CVA, palpatations, mental health, musculoskeletal)? @ -Differential Dizziness:Benign paroxysmal positional Vertigo, Meniere's disease, otitis media, acoustic neuroma, vertebrobasilar insufficiency, cerebellar stroke, encephalitis, hypovolemic, arrhythmia, coronary artery syndrome, anemia, this is not meant to be an all-inclusive list EKG interpreted by me (3pts min.). @ -As above X-rays interpreted by me (1pt min.). @ -None done CT interpreted by me (1pt min.). @ -None done U/S interpreted by me (1pt. min.). @ -None done What testing was considered but not performed or refused? (CT, X-rays, U/S, labs)? Why? @ -None What meds were considered but not given or refused? Why? @ -None Did you discuss the management of the patient with other professionals (professionals i.e. , PA, MACH[employer] SUPERVISOR, lab, RT, psych nurse, geriatric social work professor, psych nurse, teacher, quarantine officer, watch case polisher)? Give summary @ -No Was smoking cessation discussed for >3mins.? @ -I discussed smoking cessation for greater than 3 minutes. The risk of smoking were discussed with the patient including but not limited to risks of cancer, stroke, coronary artery disease and COPD. Also discussed with patient were multiple methods of quitting smoking. Lastly we discussed the financial cost of smoking. Was critical care preformed (if so, how long)? @ -No Were there social determinants of health that impacted care today? How? (Homelessness, low income, unemployed, alcoholism, drug addiction, transportation, low edu. Level, literacy, decrease access to med. care, fci, rehab)? @ -No Was there de-escalation of care discussed even if they declined (Discuss DNR or withdrawal of care, Hospice)? DNR status @ -No What co-morbidities impacted this encounter? (DM, HTN, Smoking, COPD, CAD, Cancer, CVA, ARF, Chemo, Hep., AIDS, mental health diagnosis, sleep apnea, morbid obesity)? @ -None Was patient admitted / discharged? Hospital course, mention meds given and route, prescriptions, significant lab abnormalities, going to OR and other pertinent info. @ -Discharge. 29-year-old female presented to the ER with a chief complaint of dizziness. History and physical exam completed. Vitals within normal limits. Patient in no signs of acute distress and nontoxic-appearing. Exam unremarkable. Laboratory studies obtained showing a leukocytosis white blood cell count 14.5 with left shift. Troponin undetectable. Urinalysis showing 16 WBCs and moderate leukocyte esterases. As patient is not currently complaining of urinary complaints urine will be sent for culture prior to antibiotic initiation. Urine hCG negative. Tox screen positive for THC. Viral swabs negative. Patient received IV fluids and meclizine for symptom control in the ER. Upon reevaluation, patient resting comfortably in exam room no signs of acute distress. With patient reporting mild improvement of symptoms. Symptoms believed to be vertigo in nature. Patient stable for discharge at this time. Strict return parameters discussed. Advise close follow-up with PCP. Meclizine prescribed. Patient discharged in stable condition. Patient verbally expressed understanding and agreed with care plan. Case discussed with ED attending, Dr. Stout Undiagnosed new problem with uncertain prognosis? @ -No Drug Therapy requiring intensive monitoring for toxicity (Heparin, Nitro, Insulin, Cardizem)? @ -No Were any procedures done? @ -No Diagnosis/symptom? @ -Dizziness Acute, or Chronic, or Acute on Chronic? @ -Acute Uncomplicated (without systemic symptoms) or Complicated (systemic symptoms)? @ -Uncomplicated Side effects of treatment? @ -No Exacerbation, Progression, or Severe Exacerbation? @ -No Poses a threat to life or bodily function? How? (Chest pain, [place], HI, pneumonia, PE, COPD, DKA, ARF, appy, cholecystitis, CVA, Diverticulitis, Homicidal, Suicidal, threat to staff... and all critical care pts) @ -No - Lab Data Result diagrams: 08/16/24 08:17 08/16/24 08:17 Lab Results 08/16/24 08/16/24 08/16/24 Range/Units 06:30 06:30 08:17 WBC 14.5 H (3.8-10.6) k/uL RBC 4.43 (3.80-5.40) m/uL Hgb 14.3 (11.4-16.0) gm/dL Hct 42.8 (34.0-46.0) % MCV 96.6 (80.0-100.0) fL MCH 32.2 (25.0-35.0) pg MCHC 33.3 (31.0-37.0) g/dL RDW 13.1 (11.5-15.5) % Plt Count 300 (150-450) k/uL MPV 9.4 Neutrophils % 89 % Lymphocytes % 7 % Monocytes % 3 % Eosinophils % 0 % Basophils % 0 % Neutrophils # 12.9 H (1.3-7.7) k/uL Lymphocytes # 1.0 (1.0-4.8) k/uL Monocytes # 0.4 (0-1.0) k/uL Eosinophils # 0.0 (0-0.7) k/uL Basophils # 0.1 (0-0.2) k/uL PT (10.0-12.5) sec INR (<1.2) Sodium (137-145) mmol/L Potassium (3.5-5.1) mmol/L Chloride (98-107) mmol/L Carbon Dioxide (22-30) mmol/L Anion Gap mmol/L BUN (7-17) mg/dL Creatinine (0.52-1.04) mg/dL Est GFR (CKD-EPI)AfAm (>60 ml/min/1.73 sqM) Est GFR (CKD-EPI)NonAf (>60 ml/min/1.73 sqM) Glucose (74-99) mg/dL Calcium (8.4-10.2) mg/dL Total Bilirubin (0.2-1.3) mg/dL AST (14-36) U/L ALT (4-34) U/L Alkaline Phosphatase (38-126) U/L Troponin I (0.000-0.034) ng/mL Total Protein (6.3-8.2) g/dL Albumin (3.5-5.0) g/dL Urine Color Yellow Urine Appearance Clear (Clear) Urine pH 5.5 (5.0-8.0) Ur Specific [place] 1.027 (1.001-1.035) Urine Protein Negative (Negative) Urine Glucose (UA) Negative (Negative) Urine Ketones Negative (Negative) Urine Blood Negative (Negative) Urine Nitrite Negative (Negative) Urine Bilirubin Negative (Negative) Urine Urobilinogen <2.0 (<2.0) mg/dL Ur Leukocyte Esterase Moderate H (Negative) Urine RBC 2 (0-5) /hpf Urine WBC 16 H (0-5) /hpf Ur Squamous Epith Cells <1 (0-4) /hpf Amorphous Sediment Rare H (None) /hpf Urine Bacteria Rare H (None) /hpf Urine Mucus Moderate H (None) /hpf Urine HCG, Qual Not Detected (Not Detectd) Urine Opiates Screen Not Detected (NotDetected) Ur Oxycodone Screen Not Detected (NotDetected) Urine Methadone Screen Not Detected (NotDetected) Ur Barbiturates Screen Not Detected (NotDetected) U Tricyclic Antidepress Not Detected (NotDetected) Ur Phencyclidine Scrn Not Detected (NotDetected) Ur Amphetamines Screen Not Detected (NotDetected) U Methamphetamines Scrn Not Detected (NotDetected) U Benzodiazepines Scrn Not Detected (NotDetected) Urine Cocaine Screen Not Detected (NotDetected) U Marijuana (THC) Screen Detected H (NotDetected) Influenza Type A (PCR) (Not Detectd) Influenza Type B (PCR) (Not Detectd) RSV (PCR) (Not Detectd) SARS-CoV-2 (PCR) (Not Detectd) 08/16/24 08/16/24 08/16/24 Range/Units 08:17 08:17 08:17 WBC (3.8-10.6) k/uL RBC (3.80-5.40) m/uL Hgb (11.4-16.0) gm/dL Hct (34.0-46.0) % MCV (80.0-100.0) fL MCH (25.0-35.0) pg MCHC (31.0-37.0) g/dL RDW (11.5-15.5) % Plt Count (150-450) k/uL MPV Neutrophils % % Lymphocytes % % Monocytes % % Eosinophils % % Basophils % % Neutrophils # (1.3-7.7) k/uL Lymphocytes # (1.0-4.8) k/uL Monocytes # (0-1.0) k/uL Eosinophils # (0-0.7) k/uL Basophils # (0-0.2) k/uL PT 10.4 (10.0-12.5) sec INR 0.9 (<1.2) Sodium 138 (137-145) mmol/L Potassium 5.0 (3.5-5.1) mmol/L Chloride 106 (98-107) mmol/L Carbon Dioxide 23 (22-30) mmol/L Anion Gap 9 mmol/L BUN 14 (7-17) mg/dL Creatinine 0.63 (0.52-1.04) mg/dL Est GFR (CKD-EPI)AfAm >90 (>60 ml/min/1.73 sqM) Est GFR (CKD-EPI)NonAf >90 (>60 ml/min/1.73 sqM) Glucose 115 H (74-99) mg/dL Calcium 9.4 (8.4-10.2) mg/dL Total Bilirubin 0.6 (0.2-1.3) mg/dL AST 18 (14-36) U/L ALT 19 (4-34) U/L Alkaline Phosphatase 60 (38-126) U/L Troponin I (0.000-0.034) ng/mL Total Protein 7.2 (6.3-8.2) g/dL Albumin 4.5 (3.5-5.0) g/dL Urine Color Urine Appearance (Clear) Urine pH (5.0-8.0) Ur Specific [place] (1.001-1.035) Urine Protein (Negative) Urine Glucose (UA) (Negative) Urine Ketones (Negative) Urine Blood (Negative) Urine Nitrite (Negative) Urine Bilirubin (Negative) Urine Urobilinogen (<2.0) mg/dL Ur Leukocyte Esterase (Negative) Urine RBC (0-5) /hpf Urine WBC (0-5) /hpf Ur Squamous Epith Cells (0-4) /hpf Amorphous Sediment (None) /hpf Urine Bacteria (None) /hpf Urine Mucus (None) /hpf Urine HCG, Qual (Not Detectd) Urine Opiates Screen (NotDetected) Ur Oxycodone Screen (NotDetected) Urine Methadone Screen (NotDetected) Ur Barbiturates Screen (NotDetected) U Tricyclic Antidepress (NotDetected) Ur Phencyclidine Scrn (NotDetected) Ur Amphetamines Screen (NotDetected) U Methamphetamines Scrn (NotDetected) U Benzodiazepines Scrn (NotDetected) Urine Cocaine Screen (NotDetected) U Marijuana (THC) Screen (NotDetected) Influenza Type A (PCR) Not Detected (Not Detectd) Influenza Type B (PCR) Not Detected (Not Detectd) RSV (PCR) Not Detected (Not Detectd) SARS-CoV-2 (PCR) Not Detected (Not Detectd) 08/16/24 Range/Units 08:17 WBC (3.8-10.6) k/uL RBC (3.80-5.40) m/uL Hgb (11.4-16.0) gm/dL Hct (34.0-46.0) % MCV (80.0-100.0) fL MCH (25.0-35.0) pg MCHC (31.0-37.0) g/dL RDW (11.5-15.5) % Plt Count (150-450) k/uL MPV Neutrophils % % Lymphocytes % % Monocytes % % Eosinophils % % Basophils % % Neutrophils # (1.3-7.7) k/uL Lymphocytes # (1.0-4.8) k/uL Monocytes # (0-1.0) k/uL Eosinophils # (0-0.7) k/uL Basophils # (0-0.2) k/uL PT (10.0-12.5) sec INR (<1.2) Sodium (137-145) mmol/L Potassium (3.5-5.1) mmol/L Chloride (98-107) mmol/L Carbon Dioxide (22-30) mmol/L Anion Gap mmol/L BUN (7-17) mg/dL Creatinine (0.52-1.04) mg/dL Est GFR (CKD-EPI)AfAm (>60 ml/min/1.73 sqM) Est GFR (CKD-EPI)NonAf (>60 ml/min/1.73 sqM) Glucose (74-99) mg/dL Calcium (8.4-10.2) mg/dL Total Bilirubin (0.2-1.3) mg/dL AST (14-36) U/L ALT (4-34) U/L Alkaline Phosphatase (38-126) U/L Troponin I <0.012 (0.000-0.034) ng/mL Total Protein (6.3-8.2) g/dL Albumin (3.5-5.0) g/dL Urine Color Urine Appearance (Clear) Urine pH (5.0-8.0) Ur Specific [place] (1.001-1.035) Urine Protein (Negative) Urine Glucose (UA) (Negative) Urine Ketones (Negative) Urine Blood (Negative) Urine Nitrite (Negative) Urine Bilirubin (Negative) Urine Urobilinogen (<2.0) mg/dL Ur Leukocyte Esterase (Negative) Urine RBC (0-5) /hpf Urine WBC (0-5) /hpf Ur Squamous Epith Cells (0-4) /hpf Amorphous Sediment (None) /hpf Urine Bacteria (None) /hpf Urine Mucus (None) /hpf Urine HCG, Qual (Not Detectd) Urine Opiates Screen (NotDetected) Ur Oxycodone Screen (NotDetected) Urine Methadone Screen (NotDetected) Ur Barbiturates Screen (NotDetected) U Tricyclic Antidepress (NotDetected) Ur Phencyclidine Scrn (NotDetected) Ur Amphetamines Screen (NotDetected) U Methamphetamines Scrn (NotDetected) U Benzodiazepines Scrn (NotDetected) Urine Cocaine Screen (NotDetected) U Marijuana (THC) Screen (NotDetected) Influenza Type A (PCR) (Not Detectd) Influenza Type B (PCR) (Not Detectd) RSV (PCR) (Not Detectd) SARS-CoV-2 (PCR) (Not Detectd) - EKG Data -: EKG Interpreted by Me EKG Comments: EKG taken at 6: 21 showing a sinus rhythm. No acute ST segment elevations or depressions. Inverted T waves in lead III. Ventricular rate 83, [place] interval 170, QRS duration 84, QT/QTc 352/391. Disposition Clinical Impression: Dizziness Disposition: HOME SELF-CARE Condition: Stable Instructions (If sedation given, give patient instructions): Dizziness (ED) Additional Instructions: Follow-up with PCP. Return to the ER for any new or worsening concerns Prescriptions: Meclizine [Antivert] 25 mg PO BID #15 tab Is patient prescribed a controlled substance at d/c from ED?: No Referrals: None,Stated [Primary Care Provider] - 1-2 days Forms: Area PCPs Time of Disposition: 09:44
[2024-08-16 07:13] LABS: Amorphous Sediment,Urine Rare /hpf; Appearance,Urine Clear (Clear); Bacteria,Urine Rare /hpf; Bilirubin,Urine Negative (Negative); Blood,Urine Negative (Negative); Color,Urine Yellow; Glucose,Urine (UA) Negative (Negative); Ketones,Urine Negative (Negative); Leukocyte Esterase,Urine Moderate (Negative); Mucus,Urine Moderate /hpf; Nitrite,Urine Negative (Negative); PH, Urine 5.5 (5.0-8.0); Protein,Urine Negative (Negative); RBC,Urine 2 /hpf (0-5); Specific Gravity,Urine 1.027 (1.001-1.035); Squamous Epithelial Cell,Urine <1 /hpf (0-4); Urobilinogen,Urine <2.0 mg/dL (<2.0); WBC,Urine 16 /hpf (0-5)
[2024-08-16 07:14] LABS: Amphetamine Screen,Urine Not Detected (NotDetected); Barbiturate Screen,Urine Not Detected (NotDetected); Benzodiazepines Screen,Urine Not Detected (NotDetected); Cocaine Screen,Urine Not Detected (NotDetected); Methadone Screen, Urine Not Detected (NotDetected); Opiate Screen,Urine Not Detected (NotDetected); Oxycodone Screen, Urine Not Detected (NotDetected); Phencyclidine Screen,Urine Not Detected (NotDetected); Tricyclic Antidepressant,Urine Not Detected (NotDetected); Urn Cannabinoid Scrn Detected (NotDetected)
[2024-08-16 08:21] VITALS: RESP 16; TEMP 97.9
[2024-08-16] MEDS: MECLIZINE 12.5 MG TAB PO STA (08:37)
[2024-08-16] MEDS: SODIUM CHLORIDE 0.9% 1,000 ML IV STA (08:38)
[2024-08-16 08:56] LABS: Basophils # (A) 0.1 k/uL (0-0.2); Basophils % (A) 0 %; Eosinophils % (A) 0 %; HCT 42.8 % (34.0-46.0); HGB 14.3 gm/dL (11.4-16.0); Lymphocytes % (A) 7 %; MCH 32.2 pg (25.0-35.0); MCHC 33.3 g/dL (31.0-37.0); MCV 96.6 fL (80.0-100.0); Mean Platelet Volume 9.4; Monocytes # (A) 0.4 k/uL (0-1.0); Monocytes % (A) 3 %; Neutrophils # (A) 12.9 k/uL (1.3-7.7); Neutrophils % (A) 89 %; Platelet Count 300 k/uL (150-450); RBC 4.43 m/uL (3.80-5.40); RDW 13.1 % (11.5-15.5); WBC 14.5 k/uL (3.8-10.6)
[2024-08-16 09:01] LABS: INR 0.9 (<1.2); Prothrombin Time 10.4 sec (10.0-12.5)
[2024-08-16 09:05] LABS: ALT 19 U/L (4-34); AST 18 U/L (14-36); African American GFR (CKD) >90 (>60 ml/min/1.73 sqM); Albumin 4.5 g/dL (3.5-5.0); Alkaline Phosphatase 60 U/L (38-126); Anion Gap 9 mmol/L; Blood Urea Nitrogen 14 mg/dL (7-17); Calcium 9.4 mg/dL (8.4-10.2); Carbon Dioxide 23 mmol/L (22-30); Chloride 106 mmol/L (98-107); Glucose 115 mg/dL (74-99); Non-African American GFR(CKD) >90 (>60 ml/min/1.73 sqM); Sodium 138 mmol/L (137-145); Total Bilirubin 0.6 mg/dL (0.2-1.3); Total Protein 7.2 g/dL (6.3-8.2)
[2024-08-16 10:07] VITALS: BP 118/57; PULSE 74
== END 2024-08-16 10:05 | disposition home or self-care (01) ==
LOC: EC 06:05
CPT/HCPCS: 36415; 80053; 80306; 81001; 81025; 84484; 85025; 85610; 87086; 87636; 93005; 96360; 99284